=== PATIENT | male | born 1950 | race Caucasian/White ===

== ENCOUNTER 2016-12-01 04:13 | Day surgery (SDC) | payer MEDICARE, OTHER ==
[2016-11-29 11:03] LABS: HEMATOCRIT 37.5 % (40.0-51.0); HEMOGLOBIN 12.4 g/dL (13.6-17.8)
[2016-11-29 11:14] LABS: CALCIUM, SERUM 9.6 MG/DL (8.5-10.4); CHLORIDE, SERUM 105 MMOL/L (96-112); CO2 (CARBON DIOXIDE) 28 MMOL/L (24-34); CREATININE 1.26 MG/DL (0.70-1.30); GFR AFRICAN AMERICAN 68 ML/MIN (>=60); GFR NON AFRICAN AMERICAN 59 ML/MIN (>=60); GLUCOSE, SERUM 165 MG/DL (60-99); POTASSIUM, SERUM 4.4 MMOL/L (3.5-5.3); SODIUM, SERUM 140 MMOL/L (135-148)
[2016-11-29 11:16] LABS: BUN (BLOOD UREA NITROGEN) 29 MG/DL (6-23)
--- NOTE | ~2016-12-01 | OP ---
Record Of Operation [facility] [address] [place]. [address] NAME: BERNARD HOLGUIN : 48 STATUS : [facility]#: [id number] AGE: 66 ADM/REG DATE : 12/01/16 MR#: [id number] REPORT SERV DATE: 12/03/16 DICTATED BY: ALLYN WEEMS II DATE: 12/03/16 REPORT STATUS : Draft TRANSCRIBED BY: MODL DATE: 12/03/16 DATE OF PROCEDURE: PREOPERATIVE DIAGNOSES: 1. History of spinal column stimulator placement. 2. Inadequate low back pain coverage. POSTOPERATIVE DIAGNOSES: 1. History of spinal column stimulator placement. 2. Inadequate low back pain coverage. PROCEDURE: Exchange battery placement, spinal column stimulator. SURGEON: Allyn Weems M.D. FLUIDS: One liter lactated Ringer's. ESTIMATED BLOOD LOSS: Zero. DRAINS: None. COMPLICATIONS: None. ANTIBIOTIC: Preoperatively. PREOPERATIVE HISTORY: This is a very friendly gentleman, who is obtaining and enjoying lower extremity neuromodulation coverage. He is no longer receiving the low back coverage. He does have a history of lumbar fusion but overall I did not feel he was a fusion candidate at this point. We discussed the risks and benefits. The account retention representative from [employer] felt that a newer battery may very well provide him with additional coverage in the low back. DESCRIPTION OF PROCEDURE: After informed consent was obtained, the patient was brought to the operating room at his request and general anesthesia achieved. He was placed in the prone position. The back was prepped and draped in a sterile fashion. The battery pocket was then incised on the left and the battery removed, and a new battery placed ([employer]). The system was found to be functional and standard closure performed. The patient extubated and transferred to PACU in stable condition. GIOVANNA/BETH Allyn Weems II, M.D. Record Of [facility] [address] [place]. [address] NAME: BERNARD HOLGUIN : 48 STATUS : [facility] PAT#: [id number] AGE: 66 ADM/REG DATE : 12/01/16 MR#: [id number] REPORT SERV DATE: 12/03/16 DICTATED BY: ALLYN WEEMS II DATE: 12/03/16 REPORT STATUS : Draft TRANSCRIBED BY: BETH DATE: 12/03/16 / [id number] CC: Tara Dupont II, M.D.
[~2016-12-01 04:13] MED LIST: ANDROGEL5 TOP; COREG25 PO; GLUCOPHAGE1000 MG PO; GLUCOTRO10 PO; GLUCPH PO; HALF81 PO; HUMALOG KW200 UNIT/1 SQ; HYDROCHLOROT25 MG PO; HYZAAR 100/25 T1 TAB PO; LANTUS SC; LISINOPRIL40 MG PO; LOPID6 PO; MIRALAX POWDER1 PKT PO; MIRAPEX1 MG PO; MOVE FREE JOIN1 EACH PO; MULTIPLE VIT PO; NIASPAN500 PO; NORV10 PO; OXYCON10 PO; OXYCON20 PO; OXYCON40 PO; PERCOCET 7.5/321 TAB PO; PERCOCET1 TA2 PO; PRECOSE 50 MG T50 MG OR; PREV30 PO; SEROQUEL300 MG PO; SYN.05 PO; SYN075 PO; TRAZ100 PO; TRESIBA FL200 UNIT/1 SQ; VITC500 PO; ZOCOR80 MG PO; ZOL100 PO
== END 2016-12-01 10:01 | disposition home or self-care (01) ==
LOC: SDC 04:13
PROVIDERS: Orthopaedic Surgery
PROC: 0JH70MZ Insertion of Stimulator Generator into Back Subcutaneous Tissue and Fascia, Open Approach (ICD-10-PCS; 2016-12-01)
PROC: 0JPT0MZ Removal of Stimulator Generator from Trunk Subcutaneous Tissue and Fascia, Open Approach (ICD-10-PCS; principal; 2016-12-01 05:45)
DX: Z46.2 Encounter for fitting and adjustment of other devices related to nervous system and special senses (principal); F41.9 Anxiety disorder, unspecified; F32.9 Major depressive disorder, single episode, unspecified; E11.9 Type 2 diabetes mellitus without complications; E78.5 Hyperlipidemia, unspecified; I25.2 Old myocardial infarction; I10 Essential (primary) hypertension; M19.90 Unspecified osteoarthritis, unspecified site; I25.10 Atherosclerotic heart disease of native coronary artery without angina pectoris; G47.30 Sleep apnea, unspecified; E03.9 Hypothyroidism, unspecified; F17.210 Nicotine dependence, cigarettes, uncomplicated; Z88.5 Allergy status to narcotic agent; Z98.890 Other specified postprocedural states; Z90.49 Acquired absence of other specified parts of digestive tract
CPT/HCPCS: 80048; 82962; 85014; 85018; 88300; 93005; A9270-GY; C1820; J0690; J1030; J2250; J2370; J2405; J2710; J3010; J3370